=== PATIENT | male | born 1965 | race Caucasian/White ===

== ENCOUNTER 2016-11-09 22:18 | Emergency (ER) | payer BC ==
[~2016-11-09] VITALS: Ht 172.7 cm; Wt 78.9 kg
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
--- NOTE | 2016-11-09 22:35 | NUR ---
DR ARGUELLES AT BEDSIDE FOR EVAL
[2016-11-09] MEDS ORDERED: IBUPROFEN 400 MG TABLET ONE (22:45)
[2016-11-09] MEDS ORDERED: TDAP [DIPH/PERTUSSIS/TET] 0.5 ML VIAL IM ONE ×2 (22:45→23:00)
[2016-11-09] MEDS ORDERED: IBUPROFEN 400 MG TABLET PO ONE (23:00)
--- NOTE | 2016-11-09 23:17 | NUR ---
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
[2016-11-10 00:19] VITALS: BP 156/90
--- NOTE | 2016-11-10 00:20 | NUR ---
Patient does not wish to proceed with medical care recommended by Dr. SHERMAN ). Patient given information related to possible complications, up to and including , which could occur as a result of leaving the hospital at this time. Patient verbalizes understanding of risks involved due to leaving against medical advice. Patient has signed AMA form.
== END 2016-11-10 00:20 | disposition left against medical advice (07) ==
LOC: ER 22:21
DX: S80.212A Abrasion, left knee, initial encounter (principal); S50.311A Abrasion of right elbow, initial encounter; R51 Headache; Z23 Encounter for immunization; V43.52XA Car driver injured in collision with other type car in traffic accident, initial encounter; Y93.89 Activity, other specified; Y92.410 Unspecified street and highway as the place of occurrence of the external cause; Y99.8 Other external cause status
CPT/HCPCS: 73080; 73564 ×2; 90471; 90715; 99284; A4606; A6402; Z7610